=== PATIENT | male | born 1945 | race Caucasian/White ===

== ENCOUNTER 2016-12-21 11:38 | Day surgery (SDC) | payer MEDICARE, OTHER ==
[2016-12-20 14:20] LABS: BLOOD UREA NITROGEN 37 mg/dL (7-18)
[~2016-12-21] VITALS: Ht 175.3 cm; Wt 118.2 kg
[~2016-12-21 11:38] MED LIST: ALBU8.5H3 INH; ALPR0.5T6 PO; ASPI81TA50; CARV6.252 PO; FURO80TA3 PO; INSU300I SC; LISI-170 PO; LOVA40TA2 PO; METF10002 PO; OMEP-110 PO; SITA100T PO
[2016-12-21 12:39] VITALS: BP 162/104
[2016-12-21] MEDS ORDERED: HEPARIN 1,000 UNITS/ML, 10ML ONE (12:41)
[2016-12-21] MEDS ORDERED: FENTANYL PF 100 MCG/2ML ONE (12:41)
[2016-12-21] MEDS ORDERED: LIDOCAINE 2%, 20ML ONE (12:41)
[2016-12-21] MEDS ORDERED: MIDAZOLAM 1 MG/ML, 5ML ONE (12:41)
[2016-12-21] MEDS ORDERED: VERAPAMIL 2.5 MG/ML, 2ML ONE (12:41)
[2016-12-21] MEDS ORDERED: SODIUM CHLORIDE 0.9% 1,000 ML IV SCH ×2 (14:46→16:34)
[2016-12-21] MEDS ORDERED: BIVALIRUDIN 250 MG in DEXTROSE 5% 50 ML IV SCH (16:34)
[2016-12-21 20:00] VITALS: BP 155/91
== END 2016-12-21 21:21 | disposition home or self-care (01) ==
LOC: CACL 11:38 → 5SO 16:16 → CACL 21:21
PROVIDERS: ATTEND Internal Medicine Cardiovascular Disease
DX: I25.10 Atherosclerotic heart disease of native coronary artery without angina pectoris (principal); I10 Essential (primary) hypertension; E11.9 Type 2 diabetes mellitus without complications; E78.5 Hyperlipidemia, unspecified; J44.9 Chronic obstructive pulmonary disease, unspecified; I25.5 Ischemic cardiomyopathy; Z95.5 Presence of coronary angioplasty implant and graft; Z99.81 Dependence on supplemental oxygen; Z87.891 Personal history of nicotine dependence; Z79.01 Long term (current) use of anticoagulants; Z79.84 Long term (current) use of oral hypoglycemic drugs
CPT/HCPCS: 36415; 71020; 80048; 85025; 85610; 85730; 93005; 93458; 99156; C1894; J1644; J2250; J3010; J3490; Q9967

== ENCOUNTER → 2017-03-23 | Outpatient (CLI) | payer MEDICARE, OTHER ==
[~2017-03-23] MED LIST changes: -ALBU8.5H3 INH; +ALBU8.5H8 INH
== END | disposition home or self-care (01) ==
LOC: CVU 12:36
PROVIDERS: ATTEND Internal Medicine Cardiovascular Disease
DX: I08.0 Rheumatic disorders of both mitral and aortic valves (principal); I25.10 Atherosclerotic heart disease of native coronary artery without angina pectoris; I48.91 Unspecified atrial fibrillation; I11.0 Hypertensive heart disease with heart failure; I50.9 Heart failure, unspecified; E11.9 Type 2 diabetes mellitus without complications; Z87.891 Personal history of nicotine dependence; Z95.5 Presence of coronary angioplasty implant and graft
CPT/HCPCS: 93306

== ENCOUNTER 2017-04-21 10:59 | Observation (INO) | payer MEDICARE, OTHER ==
[2017-04-19 11:13] LABS: HEMATOCRIT 46.7 % (39.2-51.8); HEMOGLOBIN 15.3 g/dL (13.7-18.0); WHITE BLOOD COUNT 8.2 x10^3/uL (3.4-10)
[2017-04-19 11:23] LABS: BLOOD UREA NITROGEN 39 mg/dL (7-18)
[~2017-04-21] VITALS: Ht 175.3 cm; Wt 109.0 kg
[~2017-04-21 10:59] MED LIST changes: -ASPI81TA50; +ASPI81TA50 PO
[2017-04-21] MEDS ORDERED: TIOT4MIS3 INH (11:21)
[2017-04-21] MEDS ORDERED: FENTANYL PF 100 MCG/2ML ONE (12:30)
[2017-04-21] MEDS ORDERED: MIDAZOLAM 1 MG/ML, 5ML ONE (12:30)
[2017-04-21] MEDS ORDERED: CEFAZOLIN PMX 1GM/50ML 50 ML ONE (12:30)
[2017-04-21] MEDS ORDERED: LIDOCAINE 2%, 20ML ONE ×2 (12:31)
[2017-04-21] MEDS ORDERED: CEFAZOLIN 1,000 MG ONE (12:31)
[2017-04-21] MEDS ORDERED: DIPHENHYDRAMINE 50 MG/ML, 1ML ONE (12:43)
[2017-04-21] MEDS ORDERED: LABETALOL 5MG/ML, 20ML ONE (13:29)
[2017-04-21] MEDS ORDERED: ACETAMINOPHEN 325 MG TABLET PO PRN (14:00)
[2017-04-21] MEDS ORDERED: ALBUTEROL SULFATE 2.5 MG/3 ML NPPB PRN (14:00)
[2017-04-21] MEDS ORDERED: ONDANSETRON 2MG/ML, 2ML IV PRN (14:00)
[2017-04-21] MEDS ORDERED: ZOLPIDEM 5MG TABLET PO PRN (14:00)
[2017-04-21 16:05] VITALS: BP 124/85
[2017-04-21 19:35] VITALS: BP 157/101
[2017-04-21] MEDS: SODIUM CHLORIDE FLUSH 10ML SYR IVF SCH (20:29)
[2017-04-21] MEDS: metFORMIN 500 MG TABLET PO SCH (20:30)
[2017-04-21] MEDS: HYDROcodone/APAP 5/325 TABLET PO PRN ×2 (20:31→22:07)
[2017-04-21] MEDS: CARVEDILOL 12.5 MG TABLET PO SCH (20:31)
[2017-04-21] MEDS ORDERED: LOVASTATIN 40 MG TABLET PO SCH (21:00)
[2017-04-21] MEDS: CEFAZOLIN PMX 1GM/50ML 50 ML IVPB SCH (22:07)
[2017-04-22 02:48] VITALS: BP 138/89
[2017-04-22] MEDS: CEFAZOLIN PMX 1GM/50ML 50 ML IVPB SCH (06:23)
[2017-04-22 08:39] VITALS: BP 147/101
[2017-04-22] MEDS: HYDROcodone/APAP 5/325 TABLET PO PRN (08:46)
[2017-04-22] MEDS: CARVEDILOL 12.5 MG TABLET PO SCH (08:46)
[2017-04-22] MEDS: metFORMIN 500 MG TABLET PO SCH (08:47)
[2017-04-22] MEDS: SODIUM CHLORIDE FLUSH 10ML SYR IVF SCH (08:48)
[2017-04-22] MEDS ORDERED: OMEPRAZOLE 20 MG CAPSULE.DR PO SCH (09:00)
[2017-04-22] MEDS ORDERED: TEMPLATE NON-FORMULARY MED. (Tiotropium Br/Olodaterol HCl (Stiolto Respimat Inhal Spray) 2 INH SCH (09:00)
[2017-04-22] MEDS ORDERED: LISINOPRIL 20 MG TABLET PO SCH (09:00)
[2017-04-22] MEDS ORDERED: INSULIN DETEMIR 100 UNITS/ML, PEN SQ-INSULIN SCH (09:00)
[2017-04-22] MEDS ORDERED: ASPIRIN 81 MG TABLET EC PO SCH (09:00)
[2017-04-22] MEDS ORDERED: FUROSEMIDE 80 MG TABLET PO SCH (09:00)
[2017-04-22] MEDS ORDERED: SITAGLIPTIN 50MG TABLET PO SCH (09:00)
[2017-04-22] MEDS ORDERED: HYDR-3240 PO (10:08)
== END 2017-04-22 10:21 | disposition home or self-care (01) ==
LOC: CACL 10:59 → ORIP 13:52 → 5SO 15:22 → CACL 17:06 → 5SO 18:29 → DCLOUNGE 04-22 10:01
PROVIDERS: ADMIT Internal Medicine Cardiovascular Disease; ATTEND Internal Medicine Cardiovascular Disease
DX: I42.9 Cardiomyopathy, unspecified (principal); I25.10 Atherosclerotic heart disease of native coronary artery without angina pectoris; E78.5 Hyperlipidemia, unspecified; E11.9 Type 2 diabetes mellitus without complications; I10 Essential (primary) hypertension; J44.9 Chronic obstructive pulmonary disease, unspecified; F10.10 Alcohol abuse, uncomplicated
CPT/HCPCS: 33217; 36415; 71010; 71020; 80048; 82962; 85025; 96365; 96375; 99156; 99157; C1721; C1779; C1892; C1895; G0378; J0690; J1200; J2250; J3010; J3490

== ENCOUNTER 2017-09-05 15:52 | Inpatient (IN) | payer MEDICARE, OTHER ==
[~2017-09-05] VITALS: Ht 175.3 cm; Wt 126.0 kg
[~2017-09-05 15:52] MED LIST changes: +HYDR-3240 PO; +TIOT4MIS3 INH
[2017-09-05] MEDS ORDERED: SODIUM CHLORIDE FLUSH 10ML SYR IVF ONE ×2 (17:00→17:30)
[2017-09-05 17:07] LABS: BASOPHILS # (AUTO) 0.01 x10^3/uL (0-0.1); BASOPHILS % (AUTO) 0 % (0-1); EOSINOPHILS # (AUTO) 0.18 x10^3/uL (0-0.4); EOSINOPHILS % (AUTO) 3 % (1-7); LYMPHOCYTES # (AUTO) 0.61 x10^3/uL (1-3.4); LYMPHOCYTES % (AUTO) 9 % (22-44); MD NO; MEAN CORPUSCULAR HEMOGLOBIN 32.8 pg (27.5-34.5); MEAN CORPUSCULAR HGB CONC 32.9 g/dL (33.2-36.2); MEAN CORPUSCULAR VOLUME 99.8 fL (81-97); MEAN PLATELET VOLUME 7.3 fL (7.4-10.4); MONOCYTES % (AUTO) 12 % (2-9); NEUTROPHILS % (AUTO) 75 % (42-75); PLATELET COUNT 213 x10^3/uL (130-400); RED BLOOD COUNT 3.36 x10^6/uL (4.38-5.82); RED CELL DISTRIBUTION WIDTH 14.4 % (9.4-14.8)
[2017-09-05 17:11] LABS: INTERNATIONAL NORMALIZED RATIO 1.13 (0.93-1.1); PROTHROMBIN TIME 11.6 Seconds (9.6-11.5)
[2017-09-05 17:16] LABS: ALANINE AMINOTRANSFERASE 20 U/L (12-78); ALBUMIN 3.3 g/dL (3.4-5.0); ANION GAP 6 mmol/L (5-15); CALCIUM 9.2 mg/dL (8.5-10.1); CHLORIDE 95 mmol/L (98-107); CREATININE 1.41 mg/dL (0.7-1.3)
[2017-09-05 17:19] LABS: ALKALINE PHOSPHATASE 119 U/L (45-117); BILIRUBIN,TOTAL 0.8 mg/dL (0.2-1.0); TOTAL PROTEIN 6.9 g/dL (6.4-8.2)
[2017-09-05] MEDS ORDERED: INSU300I SQ (17:26)
[2017-09-05] MEDS ORDERED: CARV-39 PO (17:26)
[2017-09-05] MEDS ORDERED: APIX5TAB PO (17:26)
[2017-09-05] MEDS ORDERED: MULT-717 PO (17:26)
[2017-09-05] MEDS ORDERED: LIDOCAINE 1%, 20ML INFIL ONE (17:30)
[2017-09-05] MEDS ORDERED: VANCOMYCIN PER PHARMACY MC PRN (17:30)
[2017-09-05] MEDS ORDERED: MORPHINE SULFATE 4 MG/ML, 1ML IVPush PRN (17:30)
[2017-09-05] MEDS ORDERED: CEFAZOLIN PMX 1GM/50ML 50 ML IVPB ONE (17:30)
[2017-09-05] MEDS ORDERED: CEFAZOLIN PMX 1GM/50ML 0 ML ONE (17:56)
[2017-09-05] MEDS ORDERED: VANCOMYCIN 2,100 MG in SODIUM CHLORIDE 0.9% 500 ML IV ONE (18:00)
[2017-09-05 18:12] LABS: HCT (SEDRATE) 33.6 % (39.2-51.8)
[2017-09-05] MEDS ORDERED: OMNIPAQUE 350 MG/ML, 100ML BOTTLE ONE (19:33)
[2017-09-05] MEDS ORDERED: FUROSEMIDE 40 MG/4 ML IV ONE (20:00)
[2017-09-05] MEDS ORDERED: MORPHINE SULFATE 4 MG/ML, 1ML ONE (20:15)
[2017-09-05] MEDS ORDERED: CEFAZOLIN PMX 1GM/50ML 50 ML ONE (21:11)
[2017-09-05] MEDS ORDERED: FUROSEMIDE 40 MG/4 ML ONE (21:11)
[2017-09-05] MEDS ORDERED: ONDANSETRON 2MG/ML, 2ML IVPush PRN (21:30)
[2017-09-05] MEDS ORDERED: ACETAMINOPHEN 325 MG TABLET PO PRN (21:30)
[2017-09-05] MEDS ORDERED: BISACODYL 10 MG SUPP PR PRN (21:30)
[2017-09-05] MEDS ORDERED: POLYETHYLENE GLYCOL 17 GM PACKET PO PRN (21:30)
[2017-09-05 22:14] LABS: HEMOGLOBIN A1C 6.6 % (4.2-6.3)
[2017-09-05 22:34] LABS: FOLATE LEVEL > 20.0 ng/mL (3.1-17.5)
[2017-09-05 23:03] VITALS: BP 159/87
[2017-09-05] MEDS ORDERED: ALBUTEROL SULFATE 2.5 MG/3 ML NPPB PRN (23:30)
[2017-09-06] MEDS: CARVEDILOL 25 MG TABLET PO SCH ×3 (00:05→21:33)
[2017-09-06] MEDS: APIXABAN 5 MG TABLET PO SCH ×3 (00:05→21:33)
[2017-09-06] MEDS: LOVASTATIN 40 MG TABLET PO SCH ×2 (00:06→21:32)
[2017-09-06] MEDS: metFORMIN 500 MG TABLET PO SCH ×3 (00:06→21:33)
[2017-09-06] MEDS: SODIUM CHLORIDE 0.9% 1,000 ML IV SCH ×3 (00:07→17:30)
[2017-09-06] MEDS: AMPICILLIN/SULBACTAM 3 GM in SODIUM CHLORIDE 0.9% 100 ML IV SCH ×5 (00:08→22:49)
[2017-09-06] MEDS: OXYcodone IR 5MG TABLET PO PRN ×4 (00:24→21:32)
[2017-09-06] MEDS: INSULIN GLARGINE 100 UNITS/ML, PEN SQ-INSULIN SCH ×2 (01:59→21:33)
[2017-09-06 03:14] VITALS: BP 111/64
[2017-09-06 05:16] LABS: BASOPHILS % (AUTO) 0 % (0-1); EOSINOPHILS # (AUTO) 0.28 x10^3/uL (0-0.4); EOSINOPHILS % (AUTO) 4 % (1-7); LYMPHOCYTES # (AUTO) 0.68 x10^3/uL (1-3.4); LYMPHOCYTES % (AUTO) 10 % (22-44); MD NO; MEAN CORPUSCULAR HEMOGLOBIN 33.5 pg (27.5-34.5); MEAN CORPUSCULAR HGB CONC 33.4 g/dL (33.2-36.2); MEAN CORPUSCULAR VOLUME 100.4 fL (81-97); MEAN PLATELET VOLUME 7.4 fL (7.4-10.4); MONOCYTES # (AUTO) 0.82 x10^3/uL (0.2-0.8); MONOCYTES % (AUTO) 12 % (2-9); NEUTROPHILS # (AUTO) 4.92 x10^3/uL (1.8-6.8); NEUTROPHILS % (AUTO) 73 % (42-75); PLATELET COUNT 201 x10^3/uL (130-400); RED BLOOD COUNT 3.01 x10^6/uL (4.38-5.82); RED CELL DISTRIBUTION WIDTH 14.5 % (9.4-14.8)
[2017-09-06 05:26] LABS: CHLORIDE 96 mmol/L (98-107)
[2017-09-06 05:33] LABS: ALANINE AMINOTRANSFERASE 17 U/L (12-78); ALKALINE PHOSPHATASE 103 U/L (45-117); ANION GAP 9 mmol/L (5-15); BILIRUBIN,TOTAL 1.3 mg/dL (0.2-1.0); CALCIUM 8.4 mg/dL (8.5-10.1); CREATININE 1.33 mg/dL (0.7-1.3); TOTAL PROTEIN 6.3 g/dL (6.4-8.2)
[2017-09-06] MEDS: Tiotropium Br/Olodaterol HCl (Stiolto Respimat Inhal Spray) INH SCH (07:15)
[2017-09-06 07:30] VITALS: BP 157/86
[2017-09-06] MEDS: OMEPRAZOLE 20 MG CAPSULE.DR PO SCH (08:22)
[2017-09-06] MEDS: MULTIVITAMINS/MINERALS TABLET PO SCH (08:22)
[2017-09-06] MEDS: SENNA/DOCUSATE TABLET PO SCH (08:22)
[2017-09-06] MEDS: FUROSEMIDE 80 MG TABLET PO SCH (08:23)
[2017-09-06] MEDS: ASPIRIN 81 MG TABLET EC PO SCH (08:33)
[2017-09-06] MEDS: CYANOCOBALAMIN 1,000 MCG/ML, 1ML IM SCH (09:32)
[2017-09-06 13:57] VITALS: BP 138/76
[2017-09-06] MEDS ORDERED: FUROSEMIDE 40 MG/4 ML IV ONE (18:00)
[2017-09-06 18:50] VITALS: BP 122/74
[2017-09-07 02:52] VITALS: BP 146/87
[2017-09-07] MEDS: SODIUM CHLORIDE 0.9% 1,000 ML IV SCH ×3 (03:30→23:05)
[2017-09-07 04:42] LABS: ANION GAP 4 mmol/L (5-15); CALCIUM 8.5 mg/dL (8.5-10.1); CHLORIDE 96 mmol/L (98-107); CREATININE 1.71 mg/dL (0.7-1.3)
[2017-09-07] MEDS: AMPICILLIN/SULBACTAM 3 GM in SODIUM CHLORIDE 0.9% 100 ML IV SCH ×3 (05:21→16:55)
[2017-09-07 07:09] VITALS: BP 123/76
[2017-09-07] MEDS: SENNA/DOCUSATE TABLET PO SCH (09:00)
[2017-09-07] MEDS: Tiotropium Br/Olodaterol HCl (Stiolto Respimat Inhal Spray) INH SCH (09:00)
[2017-09-07] MEDS: metFORMIN 500 MG TABLET PO SCH ×2 (09:20→20:46)
[2017-09-07] MEDS: OMEPRAZOLE 20 MG CAPSULE.DR PO SCH (09:20)
[2017-09-07] MEDS: ASPIRIN 81 MG TABLET EC PO SCH (09:20)
[2017-09-07] MEDS: APIXABAN 5 MG TABLET PO SCH ×2 (09:20→20:46)
[2017-09-07] MEDS: FUROSEMIDE 80 MG TABLET PO SCH (09:20)
[2017-09-07] MEDS: CARVEDILOL 25 MG TABLET PO SCH ×2 (09:20→20:46)
[2017-09-07] MEDS: MULTIVITAMINS/MINERALS TABLET PO SCH (09:20)
[2017-09-07] MEDS: CYANOCOBALAMIN 1,000 MCG/ML, 1ML IM SCH (09:45)
[2017-09-07] MEDS: OXYcodone IR 5MG TABLET PO PRN (12:07)
[2017-09-07 12:59] VITALS: BP 146/64
[2017-09-07] MEDS ORDERED: MAGNESIUM SULFATE PMX 4GM/100M 100 ML IV ONE (19:00)
[2017-09-07] MEDS: GABAPENTIN 100 MG CAPSULE PO SCH (20:46)
[2017-09-07] MEDS: LOVASTATIN 40 MG TABLET PO SCH (20:47)
[2017-09-07 20:57] VITALS: BP 144/84
[2017-09-07] MEDS ORDERED: INSULIN GLARGINE 100 UNITS/ML, PEN SQ-INSULIN SCH (21:00)
[2017-09-08] MEDS: AMPICILLIN/SULBACTAM 3 GM in SODIUM CHLORIDE 0.9% 100 ML IV SCH ×3 (01:59→13:28)
[2017-09-08 02:21] VITALS: BP 99/62
[2017-09-08] MEDS: OXYcodone IR 5MG TABLET PO PRN ×2 (05:08→10:36)
[2017-09-08 05:14] LABS: BASOPHILS # (AUTO) 0.02 x10^3/uL (0-0.1); BASOPHILS % (AUTO) 0 % (0-1); EOSINOPHILS # (AUTO) 0.25 x10^3/uL (0-0.4); EOSINOPHILS % (AUTO) 4 % (1-7); LYMPHOCYTES # (AUTO) 0.51 x10^3/uL (1-3.4); LYMPHOCYTES % (AUTO) 8 % (22-44); MD NO; MEAN CORPUSCULAR HEMOGLOBIN 33.2 pg (27.5-34.5); MEAN CORPUSCULAR HGB CONC 33.1 g/dL (33.2-36.2); MEAN CORPUSCULAR VOLUME 100.2 fL (81-97); MEAN PLATELET VOLUME 7.2 fL (7.4-10.4); MONOCYTES # (AUTO) 0.81 x10^3/uL (0.2-0.8); MONOCYTES % (AUTO) 12 % (2-9); NEUTROPHILS # (AUTO) 4.94 x10^3/uL (1.8-6.8); NEUTROPHILS % (AUTO) 76 % (42-75); PLATELET COUNT 203 x10^3/uL (130-400); RED BLOOD COUNT 2.89 x10^6/uL (4.38-5.82); RED CELL DISTRIBUTION WIDTH 14.3 % (9.4-14.8)
[2017-09-08 05:22] LABS: ANION GAP 7 mmol/L (5-15); CALCIUM 8.2 mg/dL (8.5-10.1); CHLORIDE 95 mmol/L (98-107)
[2017-09-08 05:24] LABS: CREATININE 2.28 mg/dL (0.7-1.3)
[2017-09-08] MEDS: CYANOCOBALAMIN 1,000 MCG/ML, 1ML IM SCH (07:48)
[2017-09-08] MEDS: ASPIRIN 81 MG TABLET EC PO SCH (07:49)
[2017-09-08] MEDS: FUROSEMIDE 80 MG TABLET PO SCH (07:49)
[2017-09-08] MEDS: MULTIVITAMINS/MINERALS TABLET PO SCH (07:49)
[2017-09-08] MEDS: metFORMIN 500 MG TABLET PO SCH (07:49)
[2017-09-08] MEDS: SENNA/DOCUSATE TABLET PO SCH (07:49)
[2017-09-08] MEDS: OMEPRAZOLE 20 MG CAPSULE.DR PO SCH (07:49)
[2017-09-08] MEDS: APIXABAN 5 MG TABLET PO SCH (07:49)
[2017-09-08] MEDS: GABAPENTIN 100 MG CAPSULE PO SCH (07:49)
[2017-09-08] MEDS: Tiotropium Br/Olodaterol HCl (Stiolto Respimat Inhal Spray) INH SCH (07:50)
[2017-09-08] MEDS: CARVEDILOL 25 MG TABLET PO SCH (07:51)
[2017-09-08 07:52] VITALS: BP 121/71
[2017-09-08] MEDS: SODIUM CHLORIDE 0.9% 1,000 ML IV SCH (09:30)
[2017-09-08] MEDS ORDERED: CHOL200040 PO (13:38)
[2017-09-08] MEDS ORDERED: AMOX1TAB64 PO (13:38)
[2017-09-08] MEDS ORDERED: GABA-826 PO (13:38)
[2017-09-08] MEDS ORDERED: SENN1TAB7 PO (13:38)
[2017-09-08] MEDS ORDERED: CYAN10002 IM (13:38)
[2017-09-08] MEDS ORDERED: OXYC-302 PO (13:38)
[2017-09-08] MEDS ORDERED: ACET325T14 PO (13:38)
[2017-09-08 14:09] VITALS: BP 123/73
[2017-09-08] MEDS ORDERED: metFORMIN 500 MG TABLET PO SCH (17:00)
[2017-09-09] MEDS ORDERED: CYANOCOBALAMIN 1,000 MCG TABLET PO SCH (09:00)
== END 2017-09-08 16:37 | disposition home health service (06) | DRG 488 ==
LOC: ED 16:46 → EDIP 19:57 → 4NOR 22:13 → DCLOUNGE 09-08 16:25
PROVIDERS: ADMIT Internal Medicine; ATTEND Internal Medicine
PROC: 0SCD0ZZ Extirpation of Matter from Left Knee Joint, Open Approach (ICD-10-PCS; principal; 2017-09-05)
DX: M25.462 Effusion, left knee (principal); L03.116 Cellulitis of left lower limb; J96.10 Chronic respiratory failure, unspecified whether with hypoxia or hypercapnia; D68.69 Other thrombophilia; E44.1 Mild protein-calorie malnutrition; E87.1 Hypo-osmolality and hyponatremia; I11.0 Hypertensive heart disease with heart failure; I50.20 Unspecified systolic (congestive) heart failure; Z68.41 Body mass index [BMI] 40.0-44.9, adult; M00.9 Pyogenic arthritis, unspecified; S80.02XA Contusion of left knee, initial encounter; I48.2 Chronic atrial fibrillation; S83.92XA Sprain of unspecified site of left knee, initial encounter; W18.39XA Other fall on same level, initial encounter; E78.5 Hyperlipidemia, unspecified; E11.9 Type 2 diabetes mellitus without complications; D53.9 Nutritional anemia, unspecified; E53.8 Deficiency of other specified B group vitamins; G89.11 Acute pain due to trauma; I25.10 Atherosclerotic heart disease of native coronary artery without angina pectoris; J44.9 Chronic obstructive pulmonary disease, unspecified; K21.9 Gastro-esophageal reflux disease without esophagitis; E66.9 Obesity, unspecified; Y93.89 Activity, other specified; Y92.89 Other specified places as the place of occurrence of the external cause; Y99.8 Other external cause status; Z79.01 Long term (current) use of anticoagulants; Z80.0 Family history of malignant neoplasm of digestive organs; Z99.81 Dependence on supplemental oxygen; Z82.49 Family history of ischemic heart disease and other diseases of the circulatory system; Z85.828 Personal history of other malignant neoplasm of skin; Z83.3 Family history of diabetes mellitus; Z95.810 Presence of automatic (implantable) cardiac defibrillator; Z96.653 Presence of artificial knee joint, bilateral
CPT/HCPCS: 10060; 36415; 80048; 80053; 82607; 82746; 82962; 83036; 83605; 83735; 85025; 85610; 85651; 86140; 87040; 96365; 96366; 96375; J0295; J1940; J3370; Q9967; J1815; J3420; J3475; J7030; J7040